=== PATIENT | female | born 1950 | race Caucasian/White ===

== ENCOUNTER 2018-06-06 13:32 | Inpatient (IN) | payer MEDICARE ==
[~2018-06-06] VITALS: Ht 167.6 cm; Wt 74.8 kg
--- NOTE | ~2018-06-06 | CON ---
[address] [address] CONSULTATION Name: RADHA NGUYỄN Room: [address] IN M.R.#: [id number] Admission: 06/06/18 Attend Phys: Erich Aldridge MD Discharge: Date of : 54 Report #: [id number] THIS REPORT FOR: //name// CC: CARLITA BORGES Physician staff Erich Aldridge DATE OF SERVICE: 06/10/2018 HISTORY OF PRESENT ILLNESS: This is a 67-year-old female patient who was evaluated by me for any neurological etiology for the patient's passing out spell. The patient provides a history that she had spells since childhood. They started spontaneously. The first one is that she had something wrong with her foot, when they were examining her, she passed out. Now, when she is in unfamiliar circumstances having some pain, she typically passes out. She was having some piercing done, and she passed out following that. She had an ankle injury, and she is being managed by Orthopedic. They were trying to get some physical therapy going, and she fell down and then was transferred here. She apparently hit the back portion of her head and has a knot there. This time, she did not pass out, and she was fully conscious, and it was because of mechanical reasons. No associated tonic-clonic activity was noticed. REVIEW OF SYSTEMS: Positive for multiple passing out spells with this patient had over a period of time. They looked like a vasovagal spell. A 14-point review of system was carried out, is positive for multiple problems. She has trouble with visual field deficit which is old. She said it was worked up, and she probably had an MRI. She does not know what the results of the MRI were. She indicates she has Crohn disease. She has problem with the back, and she has a stimulator put in. Even after that, she has some trouble with fracture of L4. She is still able to ambulate. She denies any constitutional, dermatological, hematological, allergic throat symptom associated with this. She has no ENT, cardiac, respiratory symptoms. PAST MEDICAL HISTORY: Positive for numerous spells since childhood where she passes out. FAMILY HISTORY: Positive for cystic fibrosis in the son. SOCIAL HISTORY: The patient used to smoke and drink alcohol, but she does not do either one of them now. PHYSICAL EXAMINATION: Indicates she is alert, responsive, able to follow simple and complex command. Her speech, concentration, fund of knowledge and memory are at her baseline. Cranial nerve examination 212 [place] [address] CONSULTATION Name: RADHA NGUYỄN Alon Room: [address] IN ..#: [id number] Admission: 06/06/18 Attend Phys: Erich Aldridge MD Discharge: Date of : 54 Report #: [id number] Neuromuscular examination of the left leg is not possible because it has orthopedic hardware there, but the right leg she moves well, her position sense is intact. Reflexes are somewhat increased, but she said it has always been like that. Position sense is intact. No cerebellar signs. I could not look at the fundus. The patient is moderately built individual. She does not have any dysmorphic features of eyes, ears and face. Her visions and hearing look adequate. She has no thyroid mass. Cardiac examination is unremarkable. No respiratory difficulty or rhonchi. Pulses appeared to be palpable. Blood pressure is 134/68, respirations 18, pulse is 94, temperature is 98.3. She does have increased MCV at 102, but she says she does not drink any alcohol now. Her GFR is 124. Sodium is trace down at 133, magnesium is trace down. TSH and vitamin B12 are normal. She had a CT scan of the head and C-spine and does not show any acute abnormality. C-spine was done because she has a knot in the occipital area. IMPRESSION: It is unlikely that there is any neurological etiology for the patient's passing out spell. They look more like vasovagal spell. I will check an EEG to exclude any other etiology. She does appear to have a stimulator, so we cannot do an MRI in this patient. I will go ahead and do a CT angio just to make sure there is no pathology there because her GFR is pretty good. I discussed the diagnosis and the workup in this patient. I will go ahead and check with her again and explained to her that we will do a CT angiogram and an EEG, and I will explain of the indication, potential complications and alternative. Since she had so many spells, it is best to exclude any pathology. The main recommendation will be to consult Cardiology to evaluate and manage the vasovagal spell which appeared to be the etiology of the patient's symptom. Thank you very much for this referral. By: [id number] Wallace MD /isidro
[2018-06-06 13:40] VITALS: BP 85/47
[2018-06-06] MEDS ORDERED: ACCUNEB SO1.25 MG/1 INH (13:45)
[2018-06-06] MEDS ORDERED: COUMADIN 1MG TAB1 M1 PO (13:45)
[2018-06-06] MEDS ORDERED: UNICOMPLEX M TA1 TA1 PO (13:45)
[2018-06-06] MEDS ORDERED: NORTRIPTYLINE H10 M1 PO (13:45)
[2018-06-06] MEDS ORDERED: LIPITOR10 MG PO (13:45)
[2018-06-06] MEDS ORDERED: CYMBALTA20 MG PO ×2 (13:45→13:46)
[2018-06-06] MEDS ORDERED: IMURAN 50MG TAB50 M1 PO (13:46)
[2018-06-06] MEDS ORDERED: LACTULOSE10 GM PO (13:46)
[2018-06-06] MEDS ORDERED: PRILOSEC 10MG C10 MG PO (13:47)
[2018-06-06] MEDS ORDERED: PERCOCET PO (13:47)
[2018-06-06] MEDS ORDERED: ZYRTEC10 M5 PO (13:48)
[2018-06-06] MEDS ORDERED: FLEXERIL PO (13:48)
[2018-06-06] MEDS ORDERED: ROBAXIN 750 MG750 M1 PO (13:48)
[2018-06-06] MEDS ORDERED: TRAMADOL 50 MG50 MG PO (13:48)
[2018-06-06] MEDS ORDERED: XALATAN2.5 ML OPHTHALMIC (13:49)
[2018-06-06 14:06] LABS: ABSOLUTE BASOPHILS 0.1 thou/uL (0.0-0.2); ABSOLUTE EOSINOPHILS 0.3 thou/uL (0.0-0.7); ABSOLUTE LYMPHOCYTES 1.1 thou/uL (0.8-5.3); ABSOLUTE MONOCYTES 0.4 thou/uL (0.0-1.2); BASOPHILS 1.4 %; HEMATOCRIT 36.1 % (37.0-47.0); HEMOGLOBIN 12.4 gm/dL (12.0-15.0); LYMPHOCYTES 22.5 %; MCH 34.4 pg (26.0-34.0); MCHC 34.4 g/dL (28.0-37.0); MCV 100.1 fL (80.0-100.0); MONOCYTES 7.2 %; MPV 7.6 fl. (7.2-11.1); NUCLEATED RBCS 0 /100WBC; PLATELET COUNT* 352 thou/uL (150-400); POLYS 61.9 %; RBC 3.61 mil/uL (4.20-5.00); RDW-CV 17.4 % (10.5-14.5); WBC 4.9 thou/uL (4.0-11.0)
[2018-06-06 14:54] LABS: INR 2.3; PROTIME 23.7 Seconds (9.20-11.50)
[2018-06-06 15:06] LABS: ANION GAP 9 mmol/L (7-16); BUN 15 mg/dL (7-18); CALCIUM 8.9 mg/dL (8.5-10.1); CHLORIDE 99 mmol/L (98-107); CO2 24 mmol/L (21-32); CREATININE 0.6 mg/dL (0.6-1.3); GLUCOSE 104 mg/dL (70-99); POTASSIUM 4.6 mmol/L (3.5-5.1); SODIUM 132 mmol/L (136-145)
[2018-06-06 15:13] LABS: ALBUMIN 3.4 g/dL (3.4-5.0); ALKALINE PHOSPHATASE 71 U/L (46-116); SGOT 36 U/L (15-37); SGPT 35 U/L (30-65); TOTAL BILIRUBIN 0.2 mg/dL (<0.1-1.0); TOTAL PROTEIN 6.7 g/dL (6.4-8.2); TROPONIN-I LEVEL <0.06 ng/mL (<0.06)
[2018-06-06] MEDS ORDERED: BENADRYL25 MG PO (17:27)
[2018-06-06] MEDS ORDERED: PROLIA60 MG/1 ML IM (17:29)
[2018-06-06] MEDS ORDERED: SENNA8.6 MG PO (17:31)
[2018-06-06 17:33] VITALS: BP 148/86
[2018-06-06 18:34] VITALS: BP 136/76
[2018-06-06 18:48] VITALS: BP 136/76
--- NOTE | 2018-06-06 19:49 | NUR ---
I ASSUMED CARE OF THE PATIENT AT 1800 AN ADMISSION FROM THE ED. SHE IS ALERT AND ORIENTED X4 AND IS PLEASANT. ADMISSION IS STARTED. PATIENT IS NPO AT MIDNIGHT. SURGERY IS NEEDED AFTER INR IS LOWER. ONE DOSE OF FENTANYL WAS GIVEN. PATIENT IS A HARD IV STICK. WILL CONTINUE TO MONITOR.
[2018-06-06 20:20] VITALS: BP 115/70
--- NOTE | 2018-06-07 05:03 | NUR ---
PT CARE ASSUMED AT 1930. SAT MAINTAINED IN RA. CALL LIGHT WITHIN REACH AND BED IIN LOW POSITION. PT STATED PAIN IN HER LFT ANKLE, MEDICATION GIVEN PER EMAR. DENIES SOB. PT IS IN BEDREST AND NPO FOR POSSIBLE SURGERY. ALERT AND ORIENTES X4.
[2018-06-07 05:29] LABS: HEMATOCRIT 36.5 % (37.0-47.0); HEMOGLOBIN 12.3 gm/dL (12.0-15.0); MCH 34.7 pg (26.0-34.0); MCHC 33.7 g/dL (28.0-37.0); MCV 103.1 fL (80.0-100.0); MPV 7.9 fl. (7.2-11.1); RBC 3.54 mil/uL (4.20-5.00); RDW-CV 16.9 % (10.5-14.5); WBC 5.9 thou/uL (4.0-11.0)
[2018-06-07 05:42] LABS: INR 1.7; PROTIME 17.4 Seconds (9.20-11.50)
[2018-06-07 06:06] LABS: CALCIUM 8.7 mg/dL (8.5-10.1); CREATININE 0.7 mg/dL (0.6-1.3); POTASSIUM 4.1 mmol/L (3.5-5.1)
[2018-06-07 08:00] VITALS: BP 116/67
--- NOTE | 2018-06-07 08:00 | NUR ---
AM ASSESSMENT COMPLETE, DEFER TO COMPUTER CHARTING. ALERT ORIENTED. BED REST, EDEMA AND BRUISING NOTED ON LEFT ANKLE - ICE PACK IN PLACE. REMAINS NPO FOR SURGERY ON ANKLE TODAY. CALL LIGHT WITHIN REACH, WILL MONITOR.
[2018-06-07 10:24] VITALS: BP 116/67
--- NOTE | 2018-06-07 11:00 | NUR ---
TO PRE-OP SURGERY VIA BED
[2018-06-07 14:30] VITALS: BP 119/61
--- NOTE | 2018-06-07 15:33 | OP ---
[address] [address] OPERATIVE REPORT Name: RADHA NGUYỄN Room: [address] IN M.R.#: [id number] Admission: 06/06/18 Attend Phys: Erich Aldridge MD Discharge: Date of : 54 Report #: [id number] THIS REPORT FOR: //name// CC: CARLITA BORGES Physician staff Erich Aldridge PREOPERATIVE DIAGNOSIS: Bimalleolar fracture, subluxation of the left ankle. POSTOPERATIVE DIAGNOSIS: Bimalleolar fracture, subluxation of the left ankle. OPERATIVE PROCEDURE PERFORMED: Open reduction internal fixation of bimalleolar fracture, subluxation of the left ankle. DESCRIPTION OF PROCEDURE: Under general anesthesia, the patient was placed onto the operating room table in the supine position. A routine prep and drape of the left leg and foot was performed. The procedure was performed under C-arm fluoroscopy control. Bleeding was controlled throughout the procedure by electrocautery. The wound was irrigated every 20 minutes with the bacitracin solution. Following the appropriate timeout procedure, a 5-inch skin incision was made over the distal fibula. The incision was carried through the skin and subcutaneous tissue and fascia. The lateral malleolar fracture was noted to be comminuted. It was reduced into an anatomic position. A compression plate with its components screws was then inserted, which secured the fractures in an anatomic position. A 3-inch skin incision was made over the medial malleolus and was carried through the skin and subcutaneous tissue and fascia. Soft tissues were removed from between the fracture fragments. The fracture was reduced into an anatomic position and two 4-mm cannulated cancellous screws were inserted across the fracture site under C-arm fluoroscopy control. The wounds were irrigated and closed in layers with 0 Vicryl for the fascial layer. The subcutaneous tissue was closed with 2-0 Vicryl and the skin was closed with skin julia. Sterile dressing was applied. The patient tolerated the procedure well and was returned to the recovery area in good condition. <ELECTRONICALLY SIGNED> By: Easton Bauer MD 06/07/18 1533 [id number] Nestor Bauer MD /isidro
--- NOTE | 2018-06-07 15:33 | CON ---
[address] [address] CONSULTATION Name: RADHA NGUYỄN Room: [address] IN ..#: [id number] Admission: 06/06/18 Attend Phys: Erich Aldridge MD Discharge: Date of : 54 Report #: [id number] THIS REPORT FOR: //name// CC: CARLITA BORGES Physician staff Erich Aldridge HISTORY OF PRESENT ILLNESS: This 67-year-old female fell injuring her left ankle. She presented to the Emergency Room where she was noted to have a bimalleolar fracture, subluxation of the left ankle. She was advised to become hospitalized for operative care of her injury. She is presently on Coumadin. PLAN: Once she is medically cleared, she will be taken to surgery for repair of her left ankle fracture. She will then be followed until her fracture has healed. Thank you very much for the opportunity of seeing the patient. DIAGNOSIS: Bimalleolar fracture, subluxation of the left ankle. <ELECTRONICALLY SIGNED> By: Easton Bauer MD 06/07/18 1533 1110 [id number] Bauer MD /nt
[2018-06-07 15:34] VITALS: BP 116/67
--- NOTE | 2018-06-07 16:24 | NUR ---
PATIENT RETURNING EARLIER FROM RECOVERY VIA BED. 02 ON 2L PER NC, 02 SAT 97%. GIVEN PO PAIN MEDICATION TO ASSIST WITH DISCOMFORT. CAST IN PLACE TO LEFT ANKLE, ELEVATED AND WILL PLACE ICE PACKS. IV FLUIDS RESTARTED PER ORDERS. GIVEN LUNCH SNACK TRAY EARLIER, TOLERATED DIET. SLEEPING AT THIS TIME WITH HOB ELEVATED. CALL LIGHT WITHIN REACH. WILL CONTINUE WITH PLAN OF CARE.
[2018-06-07 20:10] VITALS: BP 126/68
--- NOTE | 2018-06-08 04:54 | NUR ---
PT CARE ASSSUMED AT 1930. SAT MAINTAINED IN 2L NC. CALL LIGHT WITHIN REACH AND BED IN LOW POSITION. PT STATED PAIN AT LFT ANKLE, MEDICATION GIVEN PER EMAR. ICE PACK APPLIED ON THE LFT ANKLE. ALERT AND ORIENTED X4. HOURLY ROUNDING DONE FOR PT SAFETY.
[2018-06-08 05:00] LABS: HEMATOCRIT 30.4 % (37.0-47.0); HEMOGLOBIN 10.5 gm/dL (12.0-15.0); MCH 35.3 pg (26.0-34.0); MCHC 34.5 g/dL (28.0-37.0); MCV 102.4 fL (80.0-100.0); MPV 7.6 fl. (7.2-11.1); RBC 2.97 mil/uL (4.20-5.00); WBC 6.4 thou/uL (4.0-11.0)
[2018-06-08 05:23] LABS: INR 1.1; PROTIME 11.5 Seconds (9.20-11.50)
[2018-06-08 05:42] LABS: CALCIUM 8.1 mg/dL (8.5-10.1); CREATININE 0.5 mg/dL (0.6-1.3); POTASSIUM 4.7 mmol/L (3.5-5.1)
[2018-06-08 08:09] VITALS: BP 122/69
--- NOTE | 2018-06-08 10:25 | EKG ---
[place] [address] ELECTROCARDIOGRAM REPORT Name: RADHA NGUYỄN Room: [address] ADM IN .R.#: [id number] Admission: 06/06/18 Attend Phys: Erich Aldridge MD Discharge: Date of : 54 Report #: [id number] THIS REPORT FOR: //name// ED Test Date: 2018-06-06 Test Time: 13:55:56 Pat Name: RADHA NGUYỄN Department: Room: [facility] Gender: F Supervisor Grinding: Raul VILLALPANDO : 1950 Requested By: Glory Lester Order Number: [id number] MD: David Cai Measurements Intervals [place] Rate: 72 P: 88 UT: 164 QRS: 3 QRSD: 98 T: 71 QT: 434 QTc: 476 Interpretive Statements Sinus rhythm Probable left atrial enlargement Low voltage, extremity and precordial leads Probable anteroseptal infarct, old Nonspecific T abnormalities, lateral leads No previous ECG available for comparison Electronically Signed On 06-08-2018 10:25:02 [employer]O LEASING MANAGER by David Cai [email or web address] <ELECTRONICALLY SIGNED> By: David Cai MD, [facility] 06/08/18 1025 1355 1355 David Cai MD, [facility] /EPI
--- NOTE | 2018-06-08 12:32 | NUR ---
PT TAKEN OFF OF Q2 TURN, PT HAS GOTTEN UP OUT OF BED AND HAS BEEN MOVING AORUND, NO LONGER POTENTIAL FOR IMPAIRED SKIN INTEGRITY. FALL RISK PRECAUTIONS IN PLACE. HOURLY ROUNDING COMPLETED. WILL CONTINUE TO MONITOR.
--- NOTE | 2018-06-08 13:30 | NUR ---
MET WITH PT.,DAUGHTER,ROOSEVELT AND NAHID. PT.IS FROM [place], [place]. SHE WILL BE STAYING WITH HER DAUGHTER,ROOSEVELT. ROOSEVELT SAID I'M THE ONLY ONE THAT DOESN'T HAVE ANY STAIRS. ROOSEVELT WORKS DURING THE DAY BUT SAID HER GRANDSONS WILL POP IN DURING THE DAY. ROOSEVELT SAID THEY HAVE A NICE CHAIR PT.CAN SIT IN. BATHHROOM IS CLOSE TO CHAIR. PT.WILL NEED FRONT WHEEL WALKER FOR HOME USE. THEY WILL PUT A COOLER NEXT TO CHAIR WITH [employer] FOR LUNCH IN IT. FOR HOME HEALTH, ROOSEVELT'S ADDRESS IS [address] [place] [id number]. CM WILL FOLLOW FOR DISCHARGE.
[2018-06-08 16:32] VITALS: BP 113/57
--- NOTE | 2018-06-08 18:41 | NUR ---
PT REMAINED ALERT AND ORIENTED THIS SHIFT. PT IS ON RA, WITH SPO2 AT 98%. PT AMBULATED TODAY TO CHAIR AND BED SIDE COMMODE WITH WALKER AND GAIT BELT. NWB TO LT LEG. PT C/O PAIN, OXY AND HYDRO GIVEN ORDERED. FALL RISK PRECAUTIONS IN PLACE. HOURLY ROUNDING COMPLETED. WILL CONTINUE TO MONITOR.
[2018-06-08 20:30] VITALS: BP 112/58
[2018-06-09] VITALS (9 sets, daily range): BP systolic 125–167; BP diastolic 65–91
--- NOTE | 2018-06-09 00:13 | NUR ---
PT REPORTED BURNING PAIN IN LEFT FOOT AND ANKLE AFTER USING BEDSIDE COMMODE. PT GIVEN PRN OXYCODONE WITH MINIMAL RELIEF. PT GIVEN 5 MG MORPHINE IV. PT PAIN FREE AT THIS TIME, CALL LIGHT IN REACH, PT USING APPROPRIATELY.
[2018-06-09 04:23] LABS: HEMATOCRIT 30.7 % (37.0-47.0); HEMOGLOBIN 10.4 gm/dL (12.0-15.0); MCH 34.8 pg (26.0-34.0); MCHC 33.9 g/dL (28.0-37.0); MCV 102.7 fL (80.0-100.0); MPV 7.3 fl. (7.2-11.1); RBC 2.99 mil/uL (4.20-5.00); RDW-CV 16.8 % (10.5-14.5); WBC 5.8 thou/uL (4.0-11.0)
[2018-06-09 04:40] LABS: PROTIME 10.4 Seconds (9.20-11.50)
[2018-06-09 04:41] LABS: CALCIUM 8.5 mg/dL (8.5-10.1); CREATININE 0.5 mg/dL (0.6-1.3); MAGNESIUM 1.7 mg/dL (1.8-2.4); POTASSIUM 4.8 mmol/L (3.5-5.1)
--- NOTE | 2018-06-09 06:41 | NUR ---
PT PROGRESSING TOWARD GOALS. PT UP TO BEDSIDE COMMODE WITH ASSIST X1. PT'S PAIN CONTROLLED WITH PRN OXYCODONE. PT RECIEVED IV MORPHINE ONCE DURING SHIFT FOR REPORT OF BURNING PAIN IN LEFT FOOT AND ANKLE. VITAL SIGNS WITHIN NORMAL LIMITS, WILL CONTINUE TO MONITOR.
--- NOTE | 2018-06-09 12:29 | NUR ---
PT.WILL NEED FRONT WHEEL WALKER. OK'D WITH [employer] AND FAXED AN ORDER TO HER. P.T. WILL DISPENSE A WALKER TO PT.PRIOR TO DISCHARGE.
[2018-06-09] MEDS ORDERED: NORCO 7.5-3251 EACH PO (14:47)
--- NOTE | 2018-06-09 15:09 | NUR ---
PT.TO BE DISCHARGED TODAY WITH HOME HEALTH. SHE CHOSE [facility]. SPOKE WITH [facility] AND FAXED HER ORDERS,H&P,AND OP REPORT,AND SERVICE ADDRESS. INFORMED PT. SHE SAID THIS WAS ALL SPRUNG ON ME ABOUT GOING HOME. CM DID TELL PT.YESTERDAY THAT SHE WOULD MOST LIKELY GO HOME TUES. TOLD HER SHE WAS STABLE AND BOTH FELT SHE WAS STABLE FOR DISCHARGE. PT.DID SAY HER DAUGHTER COULD COME PICK HER UP.
--- NOTE | 2018-06-09 17:55 | NUR ---
PT IS ALERT AND ORIENTED. PT HAD FALLEN WHEN TRYING TO GO FROM THE BATHROOM TO THEIR BED ON THEIR OWN. PT WAS NOTIFIED TO USE CALL LIGHT WHEN DONE GOING TO THE BATHROOM. IT WAS NOTED THAT SOMETHING WAS WRONG WHEN A FAMILY MEMBER FROM ANOTHER ROOM WENT INTO THE PATIENTS ROOM. THIS NURSE RAN DOWN THE KIM AND SAW THAT THE PATIENT HAD FALLEN. I CALLED OUT FOR NURSE CARLEE. CARLEE CAME AND VITALS WERE TAKEN OF THE PATIENT PRIOR TO SITTING UP. VITALS WERE TAKEN AT 1542, BLOOD PRESSURE WAS 167/91, AND HEART RATE WAS 109, AND SPO2 99% ON ROOM AIR. PT STATED THAT THEY WERE TRYING TO DO IT ON THEIR OWN BECAUSE THAT IS HOW THEY WILL HAVE TO DO IT AT HOME. PT ALSO STATED THEY DID NOT LIKE THE [employer]ISTE BOOT AND FELT IT MADE THEM UNCOORDINATED. [employer]TISTE BOOT WAS REMOVED, AND PT WAS ASSITED BACK INTO BED WITH WALKER AND GAIT BELT. WLAKER AND GAIT BELT WERE WITH AND ON PATIENT WHEN ORIGINALLY TAKING PATIENT TO BATHROOM. VITALS WERE RECHECKED AFTER PATIENT WAS PUT BACK INTO BED, BLOOD PRESSURE WAS 150/80, HEART RATE 93, AND SPO2 WAS 97%. DR. SHELLEY NOTIFIED, STAT CT ORDERED, Q2H NEURO CHECKS. PUPILS OF PATIENT WAS ASSESSED AND WERE FOUND TO 3MM. STAT CT WAS COMPLETED AND WAS UNREMARKABLE. DR. SHELLEY ORDERED PT TO START TELE, Q1H NEUR CHECKS FOR 24 HOURS, AND NEURO CONSULT WITH CRIS. ORDERS PLACED. FALL RISK PRECAUTIONS WERE IN PLACE PRIOR TO FALL AND WERE CONTINUED AFTER THE FALL.
--- NOTE | 2018-06-09 19:17 | NUR ---
PT REMAINED ALERT AND ORIENTED THIS SHIFT. PT HAD FALLEN. NOTE MADE ABOUT FALL AND DR. SHELLEY WAS NOTIFIED. ORDERS MADE AND CHARTED. PT TRANSFERRED TO TELE. FALL RISK PRECAUTIONS IN PLACE. HOURLY ROUNDING COMPLETED. WILL CONTINUE TO MONITOR.
[2018-06-10] VITALS (9 sets, daily range): BP systolic 127–137; BP diastolic 59–85
--- NOTE | 2018-06-10 05:35 | NUR ---
PT TRANSFERRED TO 228. PT A&OX4. VSS. PHYSICAL ASSESSMENT COMPLETED AND CHARTED. PT ON RA WITH 97% O2 SAT. PT TRACING SR ON TELE. PT UP WITH 1 ASSIST TO BEDSIDE COMMODE. PT COMPLAINED OF TENDERNESS ON THE BACK OF THE HEAD-PAIN MEDS GIVEN PER MAR. DENIES NECK PAIN OR SOA. HOURLY ROUNDING OBSERVED. CALL LIGHT WITHIN REACH.
[2018-06-10 07:29] LABS: PROTIME 10.7 Seconds (9.20-11.50)
--- NOTE | 2018-06-10 10:09 | NUR ---
CM spoke with Pt, Pt continues to plan to dc to her dtr's home with [facility]. CM spoke with [facility] liaison, Alb[place]. Pt working on getting her dtr's address. CM to update [facility] of address at dc. Following.
== END 2018-06-10 13:45 | disposition home health service (06) | DRG 493 ==
LOC: M.ERS 13:32 → M.TBA-ER 17:03 → M.ORTHSURG 17:03 → M.2W 17:03 → M.ORTHSURG 06-08 07:28 → M.2W 06-09 19:18
PROVIDERS: Family Medicine; Nurse Practitioner Family; Specialist; ADMIT Family Medicine
DX: S82.855A Nondisplaced trimalleolar fracture of left lower leg, initial encounter for closed fracture (principal); D68.2 Hereditary deficiency of other clotting factors; E87.1 Hypo-osmolality and hyponatremia; M81.0 Age-related osteoporosis without current pathological fracture; Z96.652 Presence of left artificial knee joint; J45.909 Unspecified asthma, uncomplicated; Z96.612 Presence of left artificial shoulder joint; F41.9 Anxiety disorder, unspecified; Z96.611 Presence of right artificial shoulder joint; G89.29 Other chronic pain; M54.9 Dorsalgia, unspecified; Z85.3 Personal history of malignant neoplasm of breast; Z98.82 Breast implant status; Z87.891 Personal history of nicotine dependence; Z80.3 Family history of malignant neoplasm of breast; Z79.01 Long term (current) use of anticoagulants; Z79.899 Other long term (current) drug therapy